=== PATIENT | female | born 1990 | race Hispanic/Latino ===

== ENCOUNTER 2021-12-26 08:06 | Emergency (ER) | payer SELFPAY ==
[2021-12-26 09:01] LABS: Absolute Lymphocytes (CBC) 1.7 K/uL (0.7-4.9); Hematocrit 41.3 % (36.0-45.0); Lymphocytes % 28.2 % (15.3-44.8); MPV 8.3 fL (7.6-11.3)
[2021-12-26 09:02] LABS: Protime INR 0.98
--- NOTE | 2021-12-26 09:03 | RAD REPORT ---
EXAM DESCRIPTION: CT - Head Brain Wo Cont - 12/26/2021 8:55 am CLINICAL HISTORY: NUMBNESS Headache, drowsiness, CVA symptomology COMPARISON: No comparisons TECHNIQUE: All CT scans are performed using dose optimization technique as appropriate and may inclu de automated exposure control or mA/KV adjustment according to patient size. FINDINGS: No intracranial hemorrhage, hydrocephalus or extra-axial fluid collection.No areas of brai n edema or evidence of midline shift. The paranasal sinuses and mastoids are clear. The calvarium is intact. IMPRESSION: No acute intracranial abnormality.
[2021-12-26 09:16] LABS: ALT/SGPT 21 U/L (12-78); AST/SGOT 13 U/L (15-37); Alkaline Phosphatase 84 U/L (45-117); BUN Blood Urea Nitrogen 9 mg/dL (7-18); Bicarbonate 25 mmol/L (21-32); Bilirubin Direct 0.2 mg/dL (0-0.2); Bilirubin Total 1.1 mg/dL (0.2-1.0); Glucose Level 104 mg/dL (74-106); Magnesium 2.3 mg/dL (1.8-2.4); NT PRO-BNP 21 pg/mL (<125); Potassium 3.7 mmol/L (3.5-5.1); Protein, Total 7.3 g/dL (6.4-8.2); Sodium Level 138 mmol/L (136-145)
--- NOTE | 2021-12-26 09:16 | RAD REPORT ---
EXAM DESCRIPTION: RAD - Chest Single View - 12/26/2021 9:05 am CLINICAL HISTORY: Arm numbness, chest pain and headache Chest pain. COMPARISON: No comparisons FINDINGS: Portable technique limits examination quality. The lungs are grossly clear. The heart is normal in size. No displaced fractures. IMPRESSION: No acute intrathoracic process suspected.
[2021-12-26 09:54] LABS: SARS-COV-2 RT PCR NEGATIVE (NEGATIVE)
--- NOTE | 2021-12-26 10:27 | RAD REPORT ---
EXAM DESCRIPTION: MRI - Brain W/Wo Cont - 12/26/2021 10:12 am CLINICAL HISTORY: Headache;Numbness Headache, drowsiness COMPARISON: Head Brain Wo Cont dated 12/26/2021 TECHNIQUE: Multi-sequence, multiplanar MR imaging of the brain was performed with contrast. FINDINGS: No intracranial hemorrhage, hydrocephalus, or extra-axial fluid collection.Several small f oci of FLAIR hyperintensity seen in the frontotemporal region. No edema or shift of midline structure s. No intracranial mass. DWI is negative for acute CVA. The midline structures are normally formed. Mastoid air cells and paranasal sinuses are clear. Post-contrast images show no abnormal enhancement to suggest tumor or infection. IMPRESSION: Small nonspecific foci of T2/FLAIR hyperintensity in the frontotemporal region noted. Th is may be related to migraine headaches. Recommend followup surveillance MRI brain examination in 3-6 months. No pathologic post-contrast enhancement suspected.
--- NOTE | 2021-12-26 10:31 | RAD REPORT ---
EXAM DESCRIPTION: MRI - MRA Head Wo Cont - 12/26/2021 10:08 am CLINICAL HISTORY: Headache;Numbness CVA COMPARISON: Brain W/Wo Cont dated 12/26/2021 FINDINGS: 3D noncontrast [id number] MR angiography of the [place] was performed. No aneurysm, flow-limiting stenosis or vascular malformation is seen. Forward flow seen in codominant vertebral arteries. The visualized dural venous sinuses appear patent. IMPRESSION: No significant flow abnormality of the [place] is identified.
--- NOTE | 2021-12-26 10:32 | RAD REPORT ---
EXAM DESCRIPTION: MRI - MRA Neck W/Wo Cont - 12/26/2021 10:12 am CLINICAL HISTORY: Headache;Numbness Headache, drowsiness COMPARISON: No comparisons FINDINGS: Contrast enhance 2D [id number] MR angiography of the neck vessels was performed. Left aortic arch is present with normal branching pattern of the great vessels. Both subclavian arteries and common carotid arteries are patent. No significant internal carotid artery stenosis is identified. IMPRESSION: No significant flow abnormality of the neck vessels.
--- NOTE | 2021-12-26 10:41 | EDPHYS ---
Physician Documentation [facility] Name: Viki Doan Age: 31 yrs Sex: Female : 1990 Arrival Date: 12/26/2021 Time: 08:08 Bed 18 Private MD: ED Physician Eduardo Whiteside HPI: 12/26 08:37 This 31 yrs old Female presents to ER via Ambulatory with complaints of kdr Numbness Of Arm. 08:38 Patient states she woke up this morning and her left arm was numb and tingling. She kdr also had pain between her elbow and shoulder. She had a similar episode a number of years ago but nothing recently. She also complains of headache at the base of her skull posteriorly. Additionally she has chest pain, feels like she cannot swallow, and otherwise "does not feel right". Onset: The symptoms/episode began/occurred Patient has not felt well for a week or so. Her symptoms in general seem to be building over that period of time. She does not appear acutely ill or toxic however she does seem anxious. Severity of symptoms: At their worst the symptoms were mild in the emergency department the symptoms are unchanged. She has not had this specific constellation of symptoms simultaneously before however she has had individual elements from time to time. The patient has not recently seen a physician. 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 - Social history:: Smoking status: Patient denies any tobacco usage or history of. Patient uses street drugs, marijuana. ROS: 08:38 Constitutional: Negative for fever, chills, and weight loss, Eyes: Negative for injury, kdr pain, redness, and discharge, ENT: Negative for injury, pain, and discharge, Neck: Negative for injury, pain, and swelling, Abdomen/GI: Negative for abdominal pain, nausea, vomiting, diarrhea, and constipation, Back: Negative for injury and pain, : Negative for injury, bleeding, discharge, and swelling, Skin: Negative for injury, rash, and discoloration, Psych: Negative for depression, anxiety, suicide ideation, homicidal ideation, and hallucinations, Allergy/Immunology: Negative for hives, rash, and allergies, Endocrine: Negative for neck swelling, polydipsia, polyuria, polyphagia, and marked weight changes, Hematologic/Lymphatic: Negative for swollen nodes, abnormal bleeding, and unusual bruising. 08:38 Cardiovascular: Positive for chest pain, of the anterior aspect of left upper chest and mid-sternal area. 08:38 Respiratory: Positive for cough, dyspnea on exertion, shortness of breath, at rest. Negative for hemoptysis, pleurisy. 08:38 Skin: Positive for 08:38 Neuro: Positive for headache, numbness, tingling, weakness, of the left arm, Negative for altered mental status, dizziness, loss of consciousness, seizure activity, speech changes, syncope, near syncope. Exam: 08:38 Constitutional: This is a well developed, well nourished patient who is awake, alert, kdr and in no acute distress. Head/Face: Normocephalic, atraumatic. Eyes: Pupils equal round and reactive to light, extra-ocular motions intact. Lids and lashes normal. Conjunctiva and sclera are non-icteric and not injected. Cornea within normal limits. Periorbital areas with no swelling, redness, or edema. Neck: Trachea midline, no thyromegaly or masses palpated, and no cervical lymphadenopathy. Supple, full range of motion without nuchal rigidity, or vertebral point tenderness. No Meningismus. Chest/axilla: Normal chest wall appearance and motion. Nontender with no deformity. No lesions are appreciated. Cardiovascular: Regular rate and rhythm with a normal S1 and S2. No gallops, murmurs, or rubs. Normal PMI, no JVD. No pulse deficits. Respiratory: Lungs have equal breath sounds bilaterally, clear to auscultation and percussion. No rales, rhonchi or wheezes noted. No increased work of breathing, no retractions or nasal flaring. Abdomen/GI: Soft, non-tender, with normal bowel sounds. No distension or tympany. No guarding or rebound. No evidence of tenderness throughout. Back: No spinal tenderness. No costovertebral tenderness. Full range of motion. Skin: Warm, dry with normal turgor. Normal color with no rashes, no lesions, and no evidence of cellulitis. MS/ Extremity: Pulses equal, no cyanosis. Neurovascular intact. Full, normal range of motion. Neuro: Awake and alert, GCS 15, oriented to person, place, time, and situation. Cranial nerves II-XII grossly intact. Motor strength 5/5 in all extremities. Sensory grossly intact. Cerebellar exam normal. Normal gait. Psych: Awake, alert, with orientation to person, place and time. Behavior, mood, and affect are within normal limits. 08:52 ECG was reviewed by the Attending Physician. kdr Vital Signs: 08:15 BP 124 / 99; Pulse 88; Resp 18; Temp 98.3; Pulse Ox 100% ; Weight 88.45 kg; Height 4 ap3 ft. 11 in. (149.86 cm); 10:22 BP 115 / 81; Pulse 66; Resp 15; Pulse Ox 100% ; Pain 5/10; eo2 08:15 Body Mass Index 39.38 (88.45 kg, 149.86 cm) ap3 NIH Stroke Scale Scores: 08:40 NIHSS Score: 1 eo2 MDM: 10:40 Patient medically screened. kdr 13:29 Data reviewed: vital signs, nurses notes, lab test result(s), radiologic studies. kdr Counseling: I had a detailed discussion with the patient and/or guardian regarding: the historical points, exam findings, and any diagnostic results supporting the discharge/admit diagnosis, lab results, radiology results, the need for outpatient follow up. 12/26 08:34 Order name: Basic Metabolic Panel; Complete Time: 09:28 kdr 12/26 08:34 Order name: CBC with Diff; Complete Time: : kdr 12/26 08:34 Order name: LFT's; Complete Time: : kdr 12/26 08:34 Order name: Magnesium; Complete Time: :28 kdr 12/26 08:34 Order name: NT PRO-BNP; Complete Time: : kdr 12/26 08:34 Order name: PT-INR; Complete Time: : kdr 12/26 08:34 Order name: Troponin HS; Complete Time: : kdr 12/26 08:34 Order name: XRAY Chest (1 view); Complete Time: 09: kdr 12/26 08:36 Order name: CT Head Brain wo Cont; Complete Time: : kdr 12/26 08:36 Order name: D-Dimer; Complete Time: 09:28 kdr 12/26 08:52 Order name: COVID-19/FLU A+B (Document "Date of Onset" if Symptomatic); Complete Time: kdr 10:29 12/26 08:57 Order name: Brain W/Wo Cont; Complete Time: 10:29 EDMS 12/26 08:57 Order name: MRA Head Wo Cont; Complete Time: 10:38 EDMS 12/26 08:34 Order name: EKG; Complete Time: 08:35 kdr 12/26 08:34 Order name: Cardiac monitoring; Complete Time: 08:54 kdr 12/26 08:34 Order name: EKG - Nurse/Tech; Complete Time: 08:54 kdr 12/26 08:34 Order name: IV Saline Lock; Complete Time: 09:00 kdr 12/26 08:34 Order name: Labs collected and sent; Complete Time: 09:00 kdr 12/26 08:34 Order name: O2 Per Protocol; Complete Time: 08:54 kdr 12/26 08:34 Order name: O2 Sat Monitoring; Complete Time: 08:54 kdr 12/26 08:57 Order name: MRA Neck W/Wo Cont; Complete Time: 10:38 EDMS EC:52 Rate is 78 beats/min. Rhythm is regular, Normal Sinus Rhythm with No ectopy. QRS Delta kdr is Normal. WA interval is normal. QRS interval is normal. QT interval is normal. No Q waves. Clinical impression: Normal ECG. Administered Medications: 11:00 Drug: Tylenol 650 mg Route: PO; eo2 11:09 Follow up: Response: No adverse reaction eo2 Disposition Summary: 12/26/21 10:40 Discharge Ordered Location: Home kdr Problem: new kdr Symptoms: have improved kdr Condition: Stable kdr Diagnosis - Left arm pain, tingling. Chest pain, shortness of breath, anxiety kdr Followup: kdr - With: Private Physician - When: 2 - 3 days - Reason: If symptoms return, Further diagnostic work-up, Recheck today's complaints, Continuance of care, Re-evaluation by your physician Discharge Instructions: - Discharge Summary Sheet kdr - Nonspecific Chest Pain, Adult, [id number] kdr - Paresthesia, [id number] kdr - Managing Anxiety, Adult kdr Forms: - Medication Reconciliation Form kdr - Thank You Letter kdr - Work release form eb - Family Work Release eb NIH Stroke Scale - NIH Stroke Score Date: 12/26/2021 Time: 08:40 Total Score = 1 1a. Level of Consciousness (LOC) - 0(Alert) 1b. Level of Consciousness (LOC) (Month \\T\\ Age) - 0(Both) 1c. LOC Commands (Open \\T\\ Closes Eyes/Etl Data Architect) - 0(Both) 2. Best Gaze (Lateral Gaze Paresis) - 0(Normal) 3. Visual Field Loss - 0(No visual loss) 4. Facial Palsy - 0(Normal) 5a. Left Arm: Motor (10-second hold) - 0(No drift) 5b. Right Arm: Motor (10-second hold) - 0(No drift) 6a. Left Leg: Motor (5-second hold - always test supine) - 0(No drift) 6b. Right Leg: Motor (5-second hold - always test supine) - 0(No drift) 7. Limb Ataxia (finger/nose \\T\\ heel/mendez - test with eyes open) - 0(Absent) 8. Sensory Loss (pinprick arms/legs/face) - 1(Mild to moderate loss) 9. Best Language: Aphasia (description/naming/reading) - 0(No aphasia) 10. Dysarthria (speech clarity - read or repeat words) - 0(Normal) 11. Extinction and Inattention (visual/tactile/auditory/spatial/personal) - 0(No abnormality) Initials: eo2 Signatures: Dispatcher [employer] EDMS Eduardo Whiteside MD MD [facility] Jenny Talavera RN RN ap3 oJ Waller RN RN eo2 Corrections: (The following items were deleted from the chart) 08:56 08:37 MR STROKE PROTOCOL+MRI.RAD.OTF ordered. EDMS EDMS
--- NOTE | 2021-12-26 10:41 | ER ---
Nurse's Notes [facility] Name: Viki Doan Age: 31 yrs Sex: Female : 1990 Arrival Date: 12/26/2021 Time: 08:08 Bed 18 Private MD: Diagnosis: Left arm pain, tingling. Chest pain, shortness of breath, anxiety Presentation: 12/26 08:15 Chief complaint: Patient states: she started feeling as though she is getting short of ap3 breath yesterday. She reports waking up this morning to pain in her upper left arm that radiates down to her hand. It is also reported that when she woke up her left arm had a numb feeling from her fingers to her elbow. Patient states the last time her arm felt normal was last night when she went to bed. Patient also reports just a generalized fatigue, headache and "not feeling right". Coronavirus screen: Client presents with at least one sign or symptom that may indicate coronavirus-19. Standard/surgical mask placed on the client. Ebola Screen: No symptoms or risks identified at this time. Initial Sepsis Screen: Does the patient meet any 2 criteria? No. Patient's initial sepsis screen is negative. Does the patient have a suspected source of infection? No. Patient's initial sepsis screen is negative. Risk Assessment: Do you want to hurt yourself or someone else? Patient reports no desire to harm self or others. Onset of symptoms was December 24, 2020. 08:15 Method Of Arrival: Ambulatory ap3 08:15 Acuity: TADEO 3 ap3 Triage Assessment: 08:19 General: Appears in no apparent distress. Behavior is cooperative, anxious, Reports ap3 feeling ill for 1-2 days, fatigue for 1-2 days. Pain: Complains of pain in left arm, head and back of neck. EENT:. Neuro: Level of Consciousness is awake, alert, obeys commands, Oriented to person, place, time, situation, Moves all extremities. Gait is steady, Speech is normal. Cardiovascular: Patient's skin is warm and dry. Respiratory: Airway is patent Respiratory effort is even, unlabored. GI: Reports nausea. 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 - Social history:: Smoking status: Patient denies any tobacco usage or history of. Patient uses street drugs, marijuana. Screenin:20 Abuse screen: Denies threats or abuse. Nutritional screening: No deficits noted. ap3 Tuberculosis screening: No symptoms or risk factors identified. 08:45 Fall Risk None identified. eo2 Assessment: 08:45 General: Appears in no apparent distress. Behavior is cooperative, anxious. Pain: eo2 Complains of pain in left arm and chest and mid-sternal area and anterior aspect of left upper chest. Neuro: Level of Consciousness is awake, alert, obeys commands, Oriented to person, place, time, situation, Reports headache in right weakness in left arm. Cardiovascular: Reports chest pain, shortness of breath, Heart tones S1 S2 Capillary refill < 3 seconds Rhythm is sinus rhythm Chest pain quality is pressure. Respiratory: Reports shortness of breath Airway is patent Breath sounds are clear bilaterally. GI: Abdomen is non-distended, Bowel sounds present X 4 quads. Reports nausea, Patient currently denies diarrhea, vomiting. : No deficits noted. No signs and/or symptoms were reported regarding the genitourinary system. Musculoskeletal: Circulation, motion, and sensation intact. Capillary refill < 3 seconds, Reports Pain, weakness, and numbness in LUE. 08:50 Reassessment: Pt MEET for imaging. eo2 10:18 Reassessment: pt returned from imaging exams. eo2 Vital Signs: 08:15 BP 124 / 99; Pulse 88; Resp 18; Temp 98.3; Pulse Ox 100% ; Weight 88.45 kg; Height 4 ap3 ft. 11 in. (149.86 cm); 10:22 BP 115 / 81; Pulse 66; Resp 15; Pulse Ox 100% ; Pain 5/10; eo2 08:15 Body Mass Index 39.38 (88.45 kg, 149.86 cm) ap3 Vitals: 08:45 Cardiac Rhythm Assessment Regular Sinus rhythm. eo2 NIH Stroke Scale Scores: 08:40 NIHSS Score: 1 eo2 ED Course: 08:08 Patient arrived in ED. ds1 08:18 Triage completed. ap3 08:20 Arm band placed on right wrist. ap3 08:22 Eduardo Whiteside MD is Attending Physician. kdr 08:31 Jo Waller, KATHARINA is Primary Nurse. eo2 08:45 Patient has correct armband on for positive identification. eo2 08:45 No provider procedures requiring assistance completed. Inserted saline lock: 22 gauge eo2 in right antecubital area, using aseptic technique. Blood collected. 08:56 CT Head Brain wo Cont In Process Unspecified. EDMS 09:00 COVID-19/FLU A+B (Document "Date of Onset" if Symptomatic) Sent. eo2 09:04 NIBP on. Door closed. Noise minimized. eo2 09:05 XRAY Chest (1 view) In Process Unspecified. EDMS 10:09 Brain W/Wo Cont In Process Unspecified. EDMS 10:09 MRA Head Wo Cont In Process Unspecified. EDMS 10:09 MRA Neck W/Wo Cont In Process Unspecified. EDMS 11:09 IV discontinued, intact. eo2 Administered Medications: 11:00 Drug: Tylenol 650 mg Route: PO; eo2 11:09 Follow up: Response: No adverse reaction eo2 Outcome: 10:40 Discharge ordered by . kdr 11:09 Discharged to home ambulatory. eo2 11:09 Condition: stable 11:09 Discharge instructions given to patient, Instructed on discharge instructions, follow up and referral plans. Demonstrated understanding of instructions, follow-up care. 11:10 Patient left the ED. eo2 NIH Stroke Scale - NIH Stroke Score Date: 12/26/2021 Time: 08:40 Total Score = 1 1a. Level of Consciousness (LOC) - 0(Alert) 1b. Level of Consciousness (LOC) (Month \\T\\ Age) - 0(Both) 1c. LOC Commands (Open \\T\\ Closes Eyes/Sculpture Conservator) - 0(Both) 2. Best Gaze (Lateral Gaze Paresis) - 0(Normal) 3. Visual Field Loss - 0(No visual loss) 4. Facial Palsy - 0(Normal) 5a. Left Arm: Motor (10-second hold) - 0(No drift) 5b. Right Arm: Motor (10-second hold) - 0(No drift) 6a. Left Leg: Motor (5-second hold - always test supine) - 0(No drift) 6b. Right Leg: Motor (5-second hold - always test supine) - 0(No drift) 7. Limb Ataxia (finger/nose \\T\\ heel/mendez - test with eyes open) - 0(Absent) 8. Sensory Loss (pinprick arms/legs/face) - 1(Mild to moderate loss) 9. Best Language: Aphasia (description/naming/reading) - 0(No aphasia) 10. Dysarthria (speech clarity - read or repeat words) - 0(Normal) 11. Extinction and Inattention (visual/tactile/auditory/spatial/personal) - 0(No abnormality) Initials: eo2 Signatures: Dispatcher [employer] EDMS Eduardo Whiteside MD MD kdr Sanford, Demi ds1 Jenny Talavera RN RN ap3 Jo Waller RN RN eo2 Corrections: (The following items were deleted from the chart) 10:19 10:18 Reassessment: Pt MEET for imaging eo2 eo2
[2021-12-26] MEDS ORDERED: ACETAMINOPHEN 325 MG TABLET ONE (11:00)
[2021-12-26 11:18] VITALS: TEMP 98.3; O2SAT 100
[2021-12-26 11:19] VITALS: BP 115/81
== END 2021-12-26 11:10 | disposition home or self-care (01) ==
LOC: ER 08:06
DX: R07.9 Chest pain, unspecified (principal); R06.02 Shortness of breath; F41.9 Anxiety disorder, unspecified; Z20.822 Contact with and (suspected) exposure to COVID-19
CPT/HCPCS: 0240U; 36415; 70450; 70544; 70549; 70553; 71045; 80048; 80076; 83735; 83880; 84484; 85025; 85379; 85610; 93005; 99284; A9577

== ENCOUNTER 2023-06-05 15:39 | Emergency (ER) | payer SELFPAY ==
--- OUTSIDE RECORDS SUMMARY | 2023-06-05 15:56 | XMS REPORT | Continuity of Care Document ---
:1990 Author Organization [facility] t Address [address] [place] [address] Care Team Providers Name Role Phone NEW SRINIVASAN Attending Clinician Unavailable Problems This patient has no known problems. Allergies, Adverse Reactions, Alerts This patient has no known allergies or adverse reactions. Medications This patient has no known medications. Procedures This patient has no known procedures. Encounters Start End Encounter Admission Attending Care Care Encounter Source Date/Time Date/Time Type Type Clinicians Facility Department ID 2022-06-13 2022-06-13 Emergency E [facility] SRINIVASAN [id number] 08:03:00 14:53:00 NEW Results This patient has no known results.
[2023-06-05] MEDS ORDERED: METHYLPREDNISOLONE 40 MG INJ ONE (16:32)
[2023-06-05] MEDS ORDERED: LEVALBUTEROL 1.25 MG/3 ML NEB ONE (16:33)
[2023-06-05 17:02] LABS: Absolute Lymphocytes (CBC) 1.8 K/uL (0.7-4.9); Hematocrit 40.6 % (36.0-45.0); Lymphocytes % 25.1 % (15.3-44.8); MCV 95.2 fL (80-100); MPV 8.2 fL (7.6-11.3); RBC Red Blood Cell Count 4.27 M/uL (3.86-4.86)
--- NOTE | 2023-06-05 17:08 | RAD REPORT ---
EXAM DESCRIPTION: Tess Single View06/05/2023 4:53 pm CLINICAL HISTORY: sob COMPARISON: February 2023 FINDINGS: The lungs appear clear of acute infiltrate. The heart is normal size IMPRESSION: No acute abnormalities displayed
[2023-06-05 17:11] LABS: Protime INR 0.97
[2023-06-05 17:41] LABS: Magnesium 2.2 mg/dL (1.6-2.4); Potassium 3.5 mEq/L (3.5-5.1); Troponin High Sensitivity 3.7 pg/mL (<58.9)
[2023-06-05 17:41] LABS: SARS-CoV-2 Antigen Rapid Res Negative (Negative)
--- NOTE | 2023-06-05 18:42 | RAD REPORT ---
EXAM DESCRIPTION: USExtrem Venous W Compress Bil06/05/2023 6:36 pm CLINICAL HISTORY: Leg pain COMPARISON: none FINDINGS: The common femoral, superficial femoral, greater saphenous, popliteal and posterior tibial veins bilaterally are compressible and demonstrate augmentation. Doppler demonstrates good flow. Grayscale, color and spectral analysis performed on all vessels IMPRESSION: No evidence of deep venous thrombosis involving either lower extremity.
--- NOTE | 2023-06-05 19:19 | ER ---
Nurse's Notes [facility] Name: Viki Doan Age: 32 yrs Sex: Female : 1990 Arrival Date: 06/05/2023 Time: 15:39 Bed 20 Private MD: Diagnosis: Unspecified asthma with (acute) exacerbation;Chest pain, unspecified;Anxiety disorder, unspecified Presentation: 06/05 15:52 Chief complaint: Patient states: Cough, shortness of breath, no appetite, fatigue, body nj1 aches for about 2 weeks and chest pain started 3 days ago. Coronavirus screen: Vaccine status: Patient reports being unvaccinated. Ebola Screen: Patient denies travel to an Ebola-affected area in the 21 days before illness onset. Initial Sepsis Screen: Does the patient meet any 2 criteria? HR > 90 bpm. No. Patient's initial sepsis screen is negative. Does the patient have a suspected source of infection? No. Patient's initial sepsis screen is negative. Risk Assessment: Do you want to hurt yourself or someone else? Patient reports no desire to harm self or others. Onset of symptoms was May 22, 2023. 15:52 Method Of Arrival: Ambulatory [facility] 15:52 Acuity: TADEO 3 nj1 Historical: - Allergies: 15:54 No Known Allergies; nj1 - PMHx: 15:54 Anxiety; Asthma; nj1 - PSHx: 15:54 section; nj1 - Immunization history:: Client reports having NOT received the Covid vaccine. - Social history:: Smoking status: Patient denies any tobacco usage or history of. Screenin:44 [facility] ED Fall Risk Assessment (Adult) History of falling in the last 3 months, db including since admission No falls in past 3 months (0 pts) Confusion or Disorientation No (0 pts) Intoxicated or Sedated No (0 pts) Impaired Gait No (0 pts) Mobility Assist Device Used No (0 pt) Altered Elimination No (0 pt) Score/Fall Risk Level 0 - 2 = Low Risk Oriented to surroundings, Maintained a safe environment. Abuse screen: Denies threats or abuse. Denies injuries from another. Nutritional screening: No deficits noted. Tuberculosis screening: No symptoms or risk factors identified. Assessment: 16:35 Reassessment: Patient appears in no apparent distress at this time. Patient and/or db family updated on plan of care and expected duration. Pain level reassessed. Patient is alert, oriented x 3, equal unlabored respirations, skin warm/dry/pink. Pain: Complains of pain in chest Pain does not radiate. Pain began gradually. Neuro: Level of Consciousness is awake, alert, obeys commands, Oriented to person, place, time, situation. Cardiovascular: Reports chest pain, shortness of breath. 17:30 Reassessment: Patient appears in no apparent distress at this time. Patient and/or db family updated on plan of care and expected duration. Pain level reassessed. Patient is alert, oriented x 3, equal unlabored respirations, skin warm/dry/pink. Patient states feeling better. Patient states symptoms have improved. 18:05 Reassessment: ultrasound is at bedside. db 19:14 General: Appears comfortable, Behavior is calm, cooperative. Pain: Denies pain. Neuro: ha1 Level of Consciousness is awake, alert, obeys commands, Oriented to person, place, time, situation. Cardiovascular: Heart tones S1 S2 present Patient's skin is warm and dry. Respiratory: Airway is patent Respiratory effort is even, unlabored, Respiratory pattern is regular, symmetrical. Respiratory: Reports shortness of breath at rest. : No signs and/or symptoms were reported regarding the genitourinary system. Musculoskeletal: Circulation, motion, and sensation intact. Range of motion: intact in all extremities. Vital Signs: 15:52 BP 141 / 97; Pulse 91; Resp 18; Temp 98(O); Pulse Ox 100% ; Weight 88.9 kg; Height 4 nj1 ft. 11 in. ; Pain 7/10; 17:30 BP 144 / 104; Pulse 84; Resp 16; Pulse Ox 99% on R/A; db 18:30 BP 137 / 90; Pulse 83; Resp 18; Pulse Ox 99% on R/A; db 19:16 BP 119 / 66; Pulse 100; Resp 18 S; Pulse Ox 100% on R/A; ha1 15:52 Body Mass Index 39.59 (88.90 kg, 149.86 cm) [facility] 15:52 Pain Scale: Adult [facility] ED Course: 15:41 Patient arrived in ED. ts1 15:43 Abraham Toledo PA is PHCP. cp 15:43 Abraham Morgan MD is Attending Physician. cp 15:54 Triage completed. nj1 15:55 Arm band placed on right wrist. nj1 16:18 Elyse Benitez, RN is Primary Nurse. db 16:30 Client placed on continuous cardiac and pulse oximetry monitoring. NIBP monitoring db applied. 16:37 Inserted saline lock: 20 gauge in left antecubital area, using aseptic technique. Blood db collected. 16:37 Oxygen administered via a nebulizer mask. Response to oxygen therapy: symptoms improved.db 16:55 XRAY Chest (1 view) In Process Unspecified. EDMS 18:06 Patient has correct armband on for positive identification. Bed in low position. Call db light in reach. Side rails up X 1. 18:37 US Extremity Venous W Compression Edwin In Process Unspecified. EDMS 19:31 No provider procedures requiring assistance completed. IV discontinued, intact, ha1 bleeding controlled, No redness/swelling at site. Pressure dressing applied. Administered Medications: 16:35 Drug: Levalbuterol Inhalation 1.25 mg Route: Inhalation; db 19:02 Follow up: Response: No adverse reaction db 16:38 Drug: MethylPrednisoLONE IVP 80 mg Route: IVP; Site: left antecubital; db 19:01 Follow up: Response: No adverse reaction db Medication: 19:31 VIS not applicable for this client. ha1 Outcome: 19:18 Discharge ordered by MD. cp 19:31 Discharged to home ambulatory. ha1 19:31 Condition: stable 19:31 Discharge instructions given to patient, Instructed on discharge instructions, follow up and referral plans. medication usage, Demonstrated understanding of instructions, follow-up care, medications, Prescriptions given X 3. 19:32 Patient left the ED. ha1 Signatures: Dispatcher [employer] EDMS Abraham Toledo PA PA cp Shaye Hernandez RN RN ha1 Elyse Benitez, RN RN Keisha Bañuelos RN RN nj1 Lily Jules PAS PAS ts1
--- NOTE | 2023-06-05 19:19 | EDPHYS ---
Physician Documentation [facility] Name: Viki Doan Age: 32 yrs Sex: Female : 1990 Arrival Date: 06/05/2023 Time: 15:39 Bed 20 Private MD: ED Physician Abraham Morgan HPI: 06/05 16:20 This 32 yrs old Female presents to ER via Ambulatory with complaints of Chest cp Pain, Shortness Of Breath, Cough. 16:20 The patient has shortness of breath with light activity. cp 16:20 Onset: The symptoms/episode began/occurred 2 week(s) ago. Associated signs and cp symptoms: Pertinent positives: non-productive cough, fatigue, chest pain times 3 days, Pertinent negatives: productive cough, diaphoresis, dizziness, fever, hemoptysis. Severity of symptoms: in the emergency department the symptoms are unchanged despite home interventions. Patient reports PMHX significant for asthma. Has inhaler for treatment. Historical: - Allergies: 15:54 No Known Allergies; nj1 - PMHx: 15:54 Anxiety; Asthma; nj1 - PSHx: 15:54 section; nj1 - Immunization history:: Client reports having NOT received the Covid vaccine. - Social history:: Smoking status: Patient denies any tobacco usage or history of. ROS: 16:25 Constitutional: Negative for body aches, chills, fever, poor PO intake. cp 16:25 Eyes: Negative for injury, pain, redness, and discharge. cp 16:25 ENT: Negative for drainage from ear(s), ear pain, sore throat, difficulty swallowing, difficulty handling secretions. 16:25 Cardiovascular: Positive for chest pain, with cough, Negative for edema, palpitations. 16:25 Respiratory: Positive for cough, with no reported sputum, shortness of breath, on exertion. 16:25 Abdomen/GI: Negative for abdominal pain, vomiting, diarrhea, constipation. 16:25 Neuro: Negative for altered mental status, dizziness, headache, syncope, weakness. 16:25 All other systems are negative. Exam: 16:35 Constitutional: The patient appears in no acute distress, alert, awake, cp non-diaphoretic, non-toxic, well developed, well nourished. 16:35 Head/Face: Normocephalic, atraumatic. cp 16:35 Eyes: Periorbital structures: appear normal, Conjunctiva: normal, no exudate, no injection, Sclera: no appreciated abnormality, Lids and lashes: appear normal, bilaterally. 16:35 ENT: External ear(s): are unremarkable, Ear canal(s): are normal, clear, TM's: bulging, is not appreciated, bilaterally, dullness, bilaterally, erythema, is not appreciated, bilaterally, Nose: is normal, Mouth: Lips: moist, Oral mucosa: pink and intact, moist, Posterior pharynx: Airway: no evidence of obstruction, patent, Tonsils: are normal in appearance, erythema, is not appreciated, exudate, is not appreciated. 16:35 Neck: ROM/movement: is normal, is supple, without pain, no range of motions limitations, no meningismus, no nuchal rigidity. 16:35 Chest/axilla: Inspection: normal. 16:35 Cardiovascular: Rate: normal, Rhythm: regular, Edema: is not appreciated, JVD: is not appreciated. 16:35 Respiratory: the patient does not display signs of respiratory distress, Respirations: labored breathing, is not present, intercostal retractions, are absent, Breath sounds: bronchial sounds, that are mild, are heard diffusely, decreased breath sounds, are not appreciated, stridor, is not appreciated. 16:35 Abdomen/GI: Inspection: abdomen appears normal, Palpation: abdomen is soft and non-tender, in all quadrants. 16:35 Skin: no rash present. 16:35 Neuro: Orientation: to person, place \T\ time. Mentation: is normal, Motor: moves all fours, strength is normal, Sensation: is normal. 17:10 ECG was reviewed by the Attending Physician. cp Vital Signs: 15:52 BP 141 / 97; Pulse 91; Resp 18; Temp 98(O); Pulse Ox 100% ; Weight 88.9 kg; Height 4 nj1 ft. 11 in. ; Pain 7/10; 17:30 BP 144 / 104; Pulse 84; Resp 16; Pulse Ox 99% on R/A; db 18:30 BP 137 / 90; Pulse 83; Resp 18; Pulse Ox 99% on R/A; db 19:16 BP 119 / 66; Pulse 100; Resp 18 S; Pulse Ox 100% on R/A; ha1 15:52 Body Mass Index 39.59 (88.90 kg, 149.86 cm) nj1 15:52 Pain Scale: Adult nj1 MDM: 16:00 Patient medically screened. sarita 17:00 Differential diagnosis: asthma, Bronchitis CHF exacerbation, Chronic Obstructive cp Pulmonary Disease pneumonia, Pneumothorax pulmonary edema, Pulmonary Embolism Sepsis. Antibiotic administration: Not indicated, the patient does not have an appreciated infiltrate. 19:15 Data reviewed: vital signs, nurses notes, lab test result(s), EKG, radiologic studies, cp plain films. 19:15 I considered the following discharge prescriptions or medication management in the emergency department Medications were administered in the Emergency Department. See MAR. 19:15 Test considered but Not performed: CT: chest for PE. Care significantly affected by the following chronic conditions: asthma. Counseling: I had a detailed discussion with the patient and/or guardian regarding: the historical points, exam findings, and any diagnostic results supporting the discharge/admit diagnosis, lab results, radiology results, the need for outpatient follow up, a family practitioner, to return to the emergency department if symptoms worsen or persist or if there are any questions or concerns that arise at home. Response to treatment: the patient's symptoms have markedly improved after treatment, and as a result, I will discharge patient. 06/05 16:16 Order name: Basic Metabolic Panel; Complete Time: 17:43 06/05 17:43 Interpretation: Normal except: CL 111. 06/05 16:16 Order name: CBC with Diff; Complete Time: 17:43 06/05 19:13 Interpretation: Reviewed. 06/05 16:16 Order name: D-Dimer; Complete Time: 17:43 06/05 17:44 Interpretation: D-DIMER 273; Reviewed. 06/05 16:16 Order name: Magnesium; Complete Time: 17:43 06/05 19:14 Interpretation: Reviewed. 06/05 16:16 Order name: NT PRO-BNP; Complete Time: 17:43 06/05 19:15 Interpretation: Reviewed. 06/05 16:16 Order name: PT-INR; Complete Time: 17:43 06/05 16:16 Order name: Troponin HS; Complete Time: 17:43 06/05 19:14 Interpretation: Reviewed. 06/05 16:16 Order name: Influenza Screen (a \T\ B); Complete Time: 19:12 06/05 19:13 Interpretation: Reviewed. cp 06/05 16:16 Order name: SARS RAPID; Complete Time: 17:43 cp 06/05 16:16 Order name: Strep; Complete Time: 19:12 cp 06/05 19:13 Interpretation: Reviewed. cp 06/05 17:53 Order name: Throat Culture EDMS 06/05 16:16 Order name: XRAY Chest (1 view); Complete Time: 17:43 cp 06/05 16:48 Order name: US Extremity Venous W Compression Edwin; Complete Time: 19:12 cp 06/05 19:14 Interpretation: Report reviewed. cp 06/05 16:16 Order name: EKG; Complete Time: 16:17 cp 06/05 16:16 Order name: Cardiac monitoring; Complete Time: 17:27 cp 06/05 16:16 Order name: EKG - Nurse/Tech; Complete Time: 17:27 cp 06/05 16:16 Order name: IV Saline Lock; Complete Time: 17:27 cp 06/05 16:16 Order name: Labs collected and sent; Complete Time: 17:27 cp 06/05 16:16 Order name: O2 Per Protocol; Complete Time: 17:27 cp 06/05 16:16 Order name: O2 Sat Monitoring; Complete Time: 17:27 cp EC:10 Rate is 78 beats/min. Rhythm is regular. WA interval is normal. QRS interval is normal. cp QT interval is normal. T waves are Inverted in lead aVR. Interpreted by me. Reviewed by me. Administered Medications: 16:35 Drug: Levalbuterol Inhalation 1.25 mg Route: Inhalation; db 19:02 Follow up: Response: No adverse reaction db 16:38 Drug: MethylPrednisoLONE IVP 80 mg Route: IVP; Site: left antecubital; db 19:01 Follow up: Response: No adverse reaction db Disposition Summary: 06/05/23 19:18 Discharge Ordered Location: Home cp Problem: new cp Symptoms: have improved cp Condition: Stable cp Diagnosis - Unspecified asthma with (acute) exacerbation cp - Chest pain, unspecified cp - Anxiety disorder, unspecified cp Followup: cp - With: Private Physician - When: 2 - 3 days - Reason: Recheck today's complaints Discharge Instructions: - Discharge Summary Sheet cp - Asthma, Adult cp - Nonspecific Chest Pain, Adult cp - Aspirin and Your Heart cp - Generalized Anxiety Disorder, Adult cp - Form - Return To Work cp - Managing Anxiety, Adult cp Forms: - Medication Reconciliation Form cp - Thank You Letter cp - Antibiotic Education cp - Prescription Opioid Use cp - [email or web address] cp - Work release form rv1 Prescriptions: - Vistaril 25 mg Oral capsule - take 1 capsule by ORAL route every 6 hours As needed for anxiety; 30 capsule; cp Refills: 0, Product Selection Permitted - albuterol sulfate 90 mcg/actuation Inhalation HFA Aerosol Inhaler - inhale 2 puff by INHALATION route every 6 hours As needed administer via cp ventilator; 1 unit; Refills: 0, Product Selection Permitted - Prednisone 20 mg Oral Tablet - take 2 tablets by ORAL route once daily for 5 days; 10 tablet; Refills: 0, cp Product Selection Permitted Signatures: Dispatcher [employer] Abraham Garcia MD MD cha Page, Corey, PA PA cp Elyse Benitez, RN KATHARINA db Keisha Hernandez RN RN nj1
[2023-06-05 20:42] VITALS: TEMP 98
[2023-06-05 20:45] VITALS: BP 119/66; O2SAT 100
--- NOTE | 2023-06-07 17:16 | EKG ---
Test Date: 2023-06-05 Test Time: 17:02:19 Press Officer: JES MEASUREMENT RESULTS: Intervals: Rate: 78 ID: [id number] QRSD: 92 QT: 378 QTc: 430 [place]: P: 28 ID: [id number] QRS: 86 T: 63 INTERPRETIVE STATEMENTS: Normal sinus rhythm Normal ECG Compared to ECG 12/26/2021 08:45:55 No significant changes Electronically Signed On 06-07-23 17:13:10 CDT by Timo Costa
== END 2023-06-05 19:32 | disposition home or self-care (01) ==
LOC: ER 15:39
DX: J45.901 Unspecified asthma with (acute) exacerbation (principal); R07.9 Chest pain, unspecified; F41.9 Anxiety disorder, unspecified; Z28.310 Unvaccinated for COVID-19; Z20.822 Contact with and (suspected) exposure to COVID-19
CPT/HCPCS: 36415; 71045; 80048; 83735; 83880; 84484; 85025; 85379; 85610; 87070; 87081; 87804; 87811; 93005; 93970; 96374; 99285; J2920; J7614

== ENCOUNTER → 2023-11-20 | Emergency (ER) | payer BC ==
[~2023-11-20] MED LIST: DIAZEPAM 5 MG TABLET ONE; KETOROLAC 30 MG/ML INJ ONE; MORPHINE 4 MG/ML SYR ONE; NA CHLORIDE 0.9% 1,000 ML ONE; ONDANSETRON 4 MG/2 ML VIAL ONE; dexAMETHasone 10 MG/ML VIAL ONE
--- OUTSIDE RECORDS SUMMARY | 2023-11-20 10:56 | XMS REPORT | Continuity of Care Document ---
Author Name Unknown Address [address] [place] [address] [employer] Address [address] [place] [id number] Care Team Providers Care [employer] Inspector Name Role Phone Unavailable Unavailable Unavailable
[2023-11-20 11:39] LABS: Absolute Lymphocytes (CBC) 1.7 K/uL (0.7-4.9); Hematocrit 41.4 % (36.0-45.0); Lymphocytes % 27.2 % (15.3-44.8); MCV 95.5 fL (80-100); MPV 7.8 fL (7.6-11.3); Platelets 274 thou/uL (152-406); RBC Red Blood Cell Count 4.33 M/uL (3.86-4.86)
[2023-11-20 12:03] LABS: Albumin 3.7 g/dL (3.4-5.0); Bilirubin Total 0.6 mg/dL (0.2-1.0); Potassium 3.7 mEq/L (3.5-5.1); Protein, Total 7.2 g/dL (6.4-8.2)
[2023-11-20 12:15] LABS: Specific Gravity 1.026 (1.005-1.030)
[2023-11-20 12:27] LABS: Specific Gravity 1.026 (1.005-1.030); Urine Bacteria <20 /HPF (<20); Urine Bilirubin NEGATIVE (Negative); Urine Blood Negative (Negative); Urine Clarity Turbid (Clear); Urine Color Light-Yellow (Yellow); Urine Glucose NEGATIVE (Negative); Urine Mucus 1+ /HPF (None Seen); Urine Protein TRACE (Negative); Urine Urobilinogen Normal (Normal); Urine pH 7.5 (5.0-7.0)
--- NOTE | 2023-11-20 12:39 | RAD REPORT ---
EXAM DESCRIPTION: CT - Abdomen Pelvis W Contrast - 11/20/2023 12:25 pm CLINICAL HISTORY: Abdominal pain COMPARISON: none. TECHNIQUE: Computed axial tomography of the abdomen pelvis was obtained. 100 cc Isovue-300 was admin istered intravenously. Oral contrast was not requested which limits evaluation of bowel and appendix All CT scans are performed using dose optimization technique as appropriate and may include automated exposure control or mA/KV adjustment according to patient size. FINDINGS: The liver, spleen, pancreas, adrenal and kidneys appear unremarkable. There is no evidence of diverticulitis. Normal appendix 4.7 centimeter left ovarian cyst. No significant free fluid IMPRESSION: 4.7 centimeter left ovarian cyst without significant free-fluid. Follow-up ultrasound in 3 months would be helpful for re-evaluation
--- NOTE | 2023-11-20 13:08 | EDPHYS ---
Physician Documentation [facility] Name: Viki Doan Age: 33 yrs Sex: Female : 1990 Arrival Date: 11/20/2023 Time: 10:52 Bed 10 Private MD: DESHAUN Physician Abraham Morgan HPI: 11/20 13:01 This 33 yrs old Female presents to ER via Wheelchair with complaints of sarita Constipation, Back Pain, Lump on stomach. 13:01 The patient presents with pain that is acute, and decreased range of motion. The sarita symptoms are located in the low back, left scapular area, left subscapular area, left low back and left mid back. Onset: The symptoms/episode began/occurred 3 day(s) ago. The pain radiates to the left scapular area, left subscapular area, left low back and left mid back. Associated signs and symptoms: The patient has no apparent associated signs or symptoms. The problem was sustained when bending over, when lifting laundry basket. Modifying factors: The patient symptoms are alleviated by nothing, remaining still, the patient symptoms are aggravated by any movement. Severity of symptoms: At their worst the symptoms were mild, moderate, in the emergency department the symptoms are unchanged. The patient has not experienced similar symptoms in the past. 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 - Social history:: Smoking status: Patient denies any tobacco usage or history of. Patient uses street drugs, marijuana, Patient/guardian denies using alcohol. - Family history:: not pertinent. ROS: 13:01 Constitutional: Negative for fever, chills, and weight loss, Eyes: Negative for injury, sarita pain, redness, and discharge, ENT: Negative for injury, pain, and discharge, Neck: Negative for injury, pain, and swelling, Cardiovascular: Negative for chest pain, palpitations, and edema, Respiratory: Negative for shortness of breath, cough, wheezing, and pleuritic chest pain, Abdomen/GI: Negative for abdominal pain, nausea, vomiting, diarrhea, and constipation, : Negative for injury, bleeding, discharge, and swelling, MS/Extremity: Negative for injury and deformity, Skin: Negative for injury, rash, and discoloration, Neuro: Negative for headache, weakness, numbness, tingling, and seizure, Psych: Negative for depression, anxiety, suicide ideation, homicidal ideation, and hallucinations, Allergy/Immunology: Negative for hives, rash, and allergies, Endocrine: Negative for neck swelling, polydipsia, polyuria, polyphagia, and marked weight changes, Hematologic/Lymphatic: Negative for swollen nodes, abnormal bleeding, and unusual bruising, 13:01 Back: Positive for injury or acute deformity, decreased range of motion, pain at rest, pain with movement, of the left scapular area, left subscapular area, lumbar area, left low back and left mid back, Exam: 13:01 Constitutional: This is a well developed, well nourished patient who is awake, alert, sarita and in no acute distress. Head/Face: Normocephalic, atraumatic. Eyes: Pupils equal round and reactive to light, extra-ocular motions intact. Lids and lashes normal. Conjunctiva and sclera are non-icteric and not injected. Cornea within normal limits. Periorbital areas with no swelling, redness, or edema. ENT: Nares patent. No nasal discharge, no septal abnormalities noted. Tympanic membranes are normal and external auditory canals are clear. Oropharynx with no redness, swelling, or masses, exudates, or evidence of obstruction, uvula midline. Mucous membranes moist. Neck: Trachea midline, no thyromegaly or masses palpated, and no cervical lymphadenopathy. Supple, full range of motion without nuchal rigidity, or vertebral point tenderness. No Meningismus. Chest/axilla: Normal chest wall appearance and motion. Nontender with no deformity. No lesions are appreciated. Cardiovascular: Regular rate and rhythm with a normal S1 and S2. No gallops, murmurs, or rubs. Normal PMI, no JVD. No pulse deficits. Respiratory: Lungs have equal breath sounds bilaterally, clear to auscultation and percussion. No rales, rhonchi or wheezes noted. No increased work of breathing, no retractions or nasal flaring. Abdomen/GI: Soft, non-tender, with normal bowel sounds. No distension or tympany. No guarding or rebound. No evidence of tenderness throughout. Skin: Warm, dry with normal turgor. Normal color with no rashes, no lesions, and no evidence of cellulitis. MS/ Extremity: Pulses equal, no cyanosis. Neurovascular intact. Full, normal range of motion. Neuro: Awake and alert, GCS 15, oriented to person, place, time, and situation. Cranial nerves II-XII grossly intact. Motor strength 5/5 in all extremities. Sensory grossly intact. Cerebellar exam normal. Normal gait. Psych: Awake, alert, with orientation to person, place and time. Behavior, mood, and affect are within normal limits. 13:01 Back: pain, that is moderate, ROM is painful, normal spinal alignment noted, CVA tenderness, is absent, muscle spasm, is appreciated in the left scapular area, left subscapular area, left low back and left mid back, Vital Signs: 11:18 BP 124 / 90; Pulse 84; Resp 20; Temp 98.3(O); Pulse Ox 100% ; Weight 85.73 kg; Height 4 jj7 ft. 11 in. ; Pain 10/10; 11:18 Body Mass Index 38.17 (85.73 kg, 149.86 cm) jj7 11:18 Pain Scale: Adult jj7 MDM: 11:02 Patient medically screened. [facility] 13:04 Differential diagnosis: Fatigue Fracture Joint Injury Ligament Injury Obesity Renal sarita Infarction ruptured disc, Scoliosis spinal injury, sprain, Ureterolithiasis. Data reviewed: vital signs, nurses notes, lab test result(s), radiologic studies, CT scan. Consideration of Admission/Observation Escalation of care including admission/observation considered. I considered the following discharge prescriptions or medication management in the emergency department Medications were administered in the Emergency Department. See MAR. Independent interpretation of the following test(s) in the Emergency Department CT Scan: My interpretation is ct abd pel. Test considered but Not performed: EKG: no ekg. Care significantly affected by the following chronic conditions: asthma, anxiety. 11/20 11:10 Order name: CBC with Diff; Complete Time: 12:54 sarita 11/20 11:10 Order name: CMP; Complete Time: 12:54 sarita 11/20 11:10 Order name: Lipase; Complete Time: 12:54 sarita 11/20 11:10 Order name: Test, Urine; Complete Time: 12:54 [facility] 11/20 11:10 Order name: Urinalysis w/ reflexes; Complete Time: 12:54 [facility] 11/20 11:10 Order name: CT Abd/Pelvis - IV Contrast Only; Complete Time: 12:54 [facility] 11/20 11:10 Order name: IV Saline Lock; Complete Time: 11:27 [facility] 11/20 11:10 Order name: Labs collected and sent; Complete Time: 11:27 sarita Administered Medications: 12:45 Drug: NS 0.9% IV 1000 ml IV at 1 bolus Per protocol; 1000 mL bolus Route: IV; Rate: 1 ap3 bolus; Site: left antecubital; 14:13 Follow up: IV Status: Completed infusion; IV Intake: 1000ml ap3 12:45 Drug: Ondansetron IVP 4 mg IVP once; over 2 minutes Route: IVP; Site: left antecubital; ap3 14:13 Follow up: Response: No adverse reaction; Nausea is decreased ap3 13:43 Drug: Decadron - Dexamethasone IVP 10 mg IVP once Route: IVP; Site: left antecubital; ap3 14:12 Follow up: Response: No adverse reaction; Pain is decreased ap3 13:43 Drug: Ketorolac IVP 30 mg IVP once Route: IVP; Site: left antecubital; ap3 14:12 Follow up: Response: No adverse reaction; Pain is decreased ap3 13:43 Drug: morphine IVP or IV 4 mg IVP once over 4 mins Route: IVP; Infused Over: 4 mins; ap3 Site: left antecubital; 14:12 Follow up: Response: No adverse reaction; Pain is decreased ap3 13:43 Drug: Diazepam PO 10 mg PO once Route: PO; ap3 14:12 Follow up: Response: No adverse reaction; Pain is decreased ap3 13:44 Not Given (Patient Refused): ondansetron 4 mg IVP once; over 2 minutes ap3 Disposition Summary: 11/20/23 13:07 Discharge Ordered Notes: Location: Home sarita Problem: new sarita Symptoms: have improved sarita Condition: Stable sarita Diagnosis - Low back pain sarita - Unspecified symptoms and signs involving the musculoskeletal system sarita - Other ovarian cysts sarita Followup: sarita - With: Private Physician - When: 2 - 3 days - Reason: Recheck today's complaints, Continuance of care, Re-evaluation by your physician Followup: [facility] - With: Frandy Dobbins MD - When: 2 - 3 days - Reason: Recheck today's complaints, Re-evaluation by your physician Discharge Instructions: - Discharge Summary Sheet sarita - Acute Back Pain, Adult sarita - Musculoskeletal Pain sarita - Ovarian Cyst sarita - Ovarian Cyst, [id number] [facility] - Radicular Pain [facility] - Back Injury Prevention [facility] Forms: - Medication Reconciliation Form [facility] - Thank You Letter [facility] - Antibiotic Education [facility] - Prescription Opioid Use [facility] - Patient Portal Instructions [facility] - Leadership Thank You Letter [facility] Prescriptions: - acetaminophen-codeine 300-30 mg Oral tablet - take 2 tablet ORAL route every 6 hours; 20 tablet; Refills: 0, Product [facility] Selection Permitted - dexamethasone 2 mg Oral tablet - take 1 tablet ORAL route every 12 hours; 10 tablet; Refills: 0, Product [facility] Selection Permitted - Diclofenac Sodium 75 mg Oral Tablet Sustained Release - take 1 tablet ORAL route 2 times per day; 30 tablet; Refills: 0, Product [facility] Selection Permitted - Cyclobenzaprine 5 mg Oral Tablet - take 1 tablet ORAL route 3 times per day As needed; 15 tablet; Refills: 0, [facility] Product Selection Permitted Signatures: Dispatcher [employer] Abraham Garcia MD MD cha Prokisch, Amanda RN RN ap3 Dora Chavez RN RN jj7
--- NOTE | 2023-11-20 13:08 | ER ---
Nurse's Notes [facility] Name: Viki Doan Age: 33 yrs Sex: Female : 1990 Arrival Date: 11/20/2023 Time: 10:52 Bed 10 Private MD: Diagnosis: Low back pain;Unspecified symptoms and signs involving the musculoskeletal system;Other ovarian cysts Presentation: 11/20 11:18 Chief complaint: Patient states: HURT BACK WED . WENT TO [employer] A BASKET ON AND jj7 GOT STUCK IN THAT POSITION DUE TO PAIN. HAVING LOWER BACK PAIN THAT RADIATES DOWN LEFT LEG. Coronavirus screen: At this time, the client does not indicate any symptoms associated with coronavirus-19. Ebola Screen: No symptoms or risks identified at this time. Initial Sepsis Screen: Does the patient meet any 2 criteria? No. Patient's initial sepsis screen is negative. Does the patient have a suspected source of infection? No. Patient's initial sepsis screen is negative. Risk Assessment: Do you want to hurt yourself or someone else? Patient reports no desire to harm self or others. 11:18 Method Of Arrival: Wheelchair jj7 11:18 Acuity: TADEO 3 jj7 14:11 Onset of symptoms is unknown. ap3 Triage Assessment: 11:23 General: Appears in no apparent distress. uncomfortable, Behavior is calm, cooperative, jj7 appropriate for age. Pain: Complains of pain in back and left leg. 11:23 GI: Reports constipation. 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 - Social history:: Smoking status: Patient denies any tobacco usage or history of. Patient uses street drugs, marijuana, Patient/guardian denies using alcohol. - Family history:: not pertinent. Screenin:26 [facility] ED Fall Risk Assessment (Adult) History of falling in the last 3 months, jj7 including since admission No falls in past 3 months (0 pts) Confusion or Disorientation No (0 pts) Intoxicated or Sedated No (0 pts) Impaired Gait No (0 pts) Mobility Assist Device Used No (0 pt) Altered Elimination No (0 pt) Score/Fall Risk Level 0 - 2 = Low Risk Oriented to surroundings, Maintained a safe environment, Educated pt \T\ family on fall prevention, incl call for assistance when getting out of bed. 11:26 Abuse screen: Denies threats or abuse. Nutritional screening: No deficits noted. jj7 Tuberculosis screening: No symptoms or risk factors identified. Assessment: 14:04 GI: Bowel sounds present X 4 quads. Abd is soft and non tender. ap3 Vital Signs: 11:18 BP 124 / 90; Pulse 84; Resp 20; Temp 98.3(O); Pulse Ox 100% ; Weight 85.73 kg; Height 4 jj7 ft. 11 in. ; Pain 1010; 11:18 Body Mass Index 38.17 (85.73 kg, 149.86 cm) jj7 11:18 Pain Scale: Adult j ED Course: 10:54 Patient arrived in ED. im 11:02 Abraham Morgan MD is Attending Physician. [facility] 11:23 Triage completed. jj7 11:23 Arm band placed on right wrist. jj7 11:26 Initial lab(s) drawn, by co, sent to lab. Inserted saline lock: 20 gauge in left ap3 antecubital area, using aseptic technique. Blood collected. 11:27 CBC with Diff Sent. ap3 11:27 CMP Sent. ap3 11:27 Lipase Sent. ap3 12:27 CT Abd/Pelvis - IV Contrast Only In Process Unspecified. EDMS 13:07 Frandy Dobbins MD is Referral Physician. sarita 14:03 No provider procedures requiring assistance completed. IV discontinued, intact, ap3 bleeding controlled, No redness/swelling at site. Pressure dressing applied. 14:11 Provided Education on: discharge instructions. ap3 14:12 Patient has correct armband on for positive identification. Call light in reach. ap3 Administered Medications: 12:45 Drug: NS 0.9% IV 1000 ml IV at 1 bolus Per protocol; 1000 mL bolus Route: IV; Rate: 1 ap3 bolus; Site: left antecubital; 14:13 Follow up: IV Status: Completed infusion; IV Intake: 1000ml ap3 12:45 Drug: Ondansetron IVP 4 mg IVP once; over 2 minutes Route: IVP; Site: left antecubital; ap3 14:13 Follow up: Response: No adverse reaction; Nausea is decreased ap3 13:43 Drug: Decadron - Dexamethasone IVP 10 mg IVP once Route: IVP; Site: left antecubital; ap3 14:12 Follow up: Response: No adverse reaction; Pain is decreased ap3 13:43 Drug: Ketorolac IVP 30 mg IVP once Route: IVP; Site: left antecubital; ap3 14:12 Follow up: Response: No adverse reaction; Pain is decreased ap3 13:43 Drug: morphine IVP or IV 4 mg IVP once over 4 mins Route: IVP; Infused Over: 4 mins; ap3 Site: left antecubital; 14:12 Follow up: Response: No adverse reaction; Pain is decreased ap3 13:43 Drug: Diazepam PO 10 mg PO once Route: PO; ap3 14:12 Follow up: Response: No adverse reaction; Pain is decreased ap3 13:44 Not Given (Patient Refused): ondansetron 4 mg IVP once; over 2 minutes ap3 Medication: 14:11 VIS not applicable for this client. ap3 Intake: 14:13 IV: 1000ml; Total: 1000ml. ap3 Outcome: 13:07 Discharge ordered by . sarita 14:05 Discharged to home with family, ap3 14:05 Condition: good 14:05 Discharge instructions given to patient, family, Instructed on discharge instructions, follow up and referral plans. medication usage, Demonstrated understanding of instructions, follow-up care, medications, Prescriptions given X 4, 14:12 Patient left the ED. ap3 Signatures: Dispatcher [employer] EDAK Abraham Morgan MD MD cha Prokisch, Amanda RN RN [id number] Dora Chavez RN RN jjMaria Victoria Montoya Corrections: (The following items were deleted from the chart) 11:26 11:23 GI: No deficits noted. jj7 jj7
[2023-11-20 14:24] VITALS: BP 124/90; TEMP 98.3; O2SAT 100
== END ==
LOC: ER 10:52
DX: R29.91 Unspecified symptoms and signs involving the musculoskeletal system (principal); M62.838 Other muscle spasm; N83.299 Other ovarian cyst, unspecified side
CPT/HCPCS: 96361; 85025; 81001; 36415; 81025; 83690; 80053; 74177; 96375; 96374; 99284; Q9967; J1100; J2405; J7030